=== PATIENT | female | born 1990 | race Caucasian/White ===

== ENCOUNTER 2016-11-11 10:59 | Emergency (ER) | payer SELFPAY ==
[~2016-11-11] VITALS: Ht 160 cm; Wt 86.0 kg
[~2016-11-11 10:59] MED LIST: VENL75TA4 PO
[2016-11-11 11:09] VITALS: TEMP 36.6; Ht 160 cm; Wt 86.0 kg
[2016-11-11 12:03] LABS: HEMATOCRIT 38.9 % (37-47); MEAN CELL VOLUME 90.3 fL (80-100); MEAN CORPUSCULAR HGB CONC 35.5 g/dl (32-36); MEAN PLATELET VOLUME 10.4 fL (7.4-10.4); PLATELET COUNT 252 K/uL (130-400); RED BLOOD COUNT 4.31 M/uL (4.2-5.4); WHITE BLOOD COUNT 9.83 K/uL (4.8-10.8)
[2016-11-11] MEDS ORDERED: SODIUM CHLORIDE 0.9% 1000ML 1,000 ML IV STA (12:07)
[2016-11-11 12:18] LABS: URINE APPEARANCE CLEAR (CLEAR); URINE BILIRUBIN NEG (NEG); URINE COLOR YELLOW; URINE NITRITE NEG (NEG); URINE SPECIFIC GRAVITY 1.005 (1.000-1.030); UROBILINOGEN NEG (NEG); ZZUR CULT IF INDIC CLEAN CATCH NO
[2016-11-11 12:27] LABS: MANUAL MICROSCOPIC REQUIRED? NO; REVIEW REQ? NO
[2016-11-11 12:29] LABS: BASO % 0.4 %; BASO ABS # 0.04 K/uL (0-0.2); COMPLETE YES; IG% 0.2 %; LYMPH % 31.4 %; LYMPH ABS # 3.09 K/uL (1.2-3.4); MONO % 5.5 %; NEUT % 59.5 %
[2016-11-11 12:41] LABS: BUN/CREATININE RATIO 10.7 (10-20); CALCIUM 8.5 mg/dl (8.5-10.1); CREATININE 0.71 mg/dl (0.60-1.20); POTASSIUM 3.8 mmol/L (3.5-5.1)
[2016-11-11] MEDS ORDERED: ACETTAB PO (13:04)
--- NOTE | 2016-11-11 13:58 | DIAGNOSTIC IMAGING REPORT ---
EXAMINATION: PELVIC ULTRASOUND (transabdominal and endovaginal scanning) CLINICAL HISTORY: heavy vaginal bleeding, cramping COMPARISON STUDY: None FINDINGS: The uterus measured 6.4 x 3.9 x 3.9 cm.. There is a complex lesion involving the lower uterine segment/cervix measuring 4 x 17 x 43 mm. This may represent a large blood clot. The endometrial stripe measured 7 mm. The right ovary measured 41 x 25 x 24 mm. The left ovary measured 29 x 16 x 33 mm. There is no ultrasonographic evidence of ovarian torsion. It should be noted that ovarian torsion can be present with normal Doppler ultrasonographic findings. There is a small amount of complex free fluid present. IMPRESSION: 1. Complex lesion involving the lower uterine segment/cervix measuring 40 x 17 x 43 mm. This may resent a blood clot and clinical and imaging follow-up is recommended 2. Small amount of complex free fluid 3. No pathologic ovarian masses Electronically signed by: Uche Strange M.D. 11/11/2016 1:57 PM Dictated Date/Time: 11/11/2016 1:54 PM
--- NOTE | 2016-11-11 15:49 | EMERGENCY ROOM VISIT NOTE ---
History First contact with patient: 11:53 Chief Complaint: ED VAG BLEEDING Stated Complaint: LOST A LOT OF UTERINE BLOOD History of Present Illness The patient is a 25 year old female who presents to the Emergency Room with complaints of heavy vaginal bleeding. The patient states that she has had irregular menstrual bleeding since she stopped control in May 2015. She states that her periods are very heavy and lasted longer than usual. She also has bleeding between her periods. She was seen last year in [place] emergency Department and diagnosed with PID at that time. She was told to follow-up with an [facility], but she has not seen anyone. She does report some cramping pain in her lower abdomen which she rates a 4/10. She denies any associated urinary symptoms, nausea or vomiting. She denies any chance of . She denies any history of bleeding disorders. Review of Systems A complete 10-point Review of Systems was discussed with the patient, with pertinent positives and negatives listed in the History of Present Illness. All remaining Review of Systems questions can be considered negative unless otherwise specified. Social History Smoking Status: Current Every Day Smoker Current/Historical Medications Scheduled Pwmlcnwfkupex-Jtmnetfo-Qbrojeb (Pamprin Multi-Symptom), 2 TABS PO DAILY Allergies Uncoded Allergies: AMMIRIX (Allergy, Severe, throat swelling, edema to feet, 07/11/12) Physical Exam Vital Signs Date Time Temp Pulse Resp B/P Pulse Ox O2 Delivery O2 Flow Rate FiO2 11/11/16 16:03 76 20 132/80 96 Room Air 11/11/16 14:08 78 18 107/77 100 Room Air 11/11/16 12:22 78 18 115/78 98 Room Air 11/11/16 11:09 36.6 82 17 132/79 93 Room Air Physical Exam VITALS: Vitals are noted on the nurse's note and reviewed by myself. Vital signs stable. GENERAL: This is a 25-year-old female, in no acute distress, nondiaphoretic, well-developed well-nourished. SKIN: Capillary reflex less than 2 seconds. HEART: Regular rate and rhythm without murmurs gallops or rubs. LUNGS: Clear to auscultation bilaterally without wheezes, rales or rhonchi. ABDOMEN: Positive bowel sounds x 4. Soft, minimal tenderness of the lower abdomen. No guarding or rebound tenderness. PELVIC: Small amount of blood within the vaginal vault. No blood clots or tissue noted. No abnormal discharge or cervicitis. NEURO: Patient was alert and oriented to person place and time. Medical Decision & Procedures ER Provider Diagnostic Interpretation: EXAMINATION: PELVIC ULTRASOUND (transabdominal and endovaginal scanning) CLINICAL HISTORY: heavy vaginal bleeding, cramping COMPARISON STUDY: None FINDINGS: The uterus measured 6.4 x 3.9 x 3.9 cm.. There is a complex lesion involving the lower uterine segment/cervix measuring 4 x 17 x 43 mm. This may represent a large blood clot. The endometrial stripe measured 7 mm. The right ovary measured 41 x 25 x 24 mm. The left ovary measured 29 x 16 x 33 mm. There is no ultrasonographic evidence of ovarian torsion. It should be noted that ovarian torsion can be present with normal Doppler ultrasonographic findings. There is a small amount of complex free fluid present. IMPRESSION: 1. Complex lesion involving the lower uterine segment/cervix measuring 40 x 17 x 43 mm. This may resent a blood clot and clinical and imaging follow-up is recommended 2. Small amount of complex free fluid 3. No pathologic ovarian masses Laboratory Results 11/11/16 11:45 Red Blood Count 4.31, Mean Corpuscular Volume 90.3, Mean Corpuscular Hemoglobin 32.0, Mean Corpuscular Hemoglobin Concent 35.5, Mean Platelet Volume 10.4, Neutrophils (%) (Auto) 59.5, Lymphocytes (%) (Auto) 31.4, Monocytes (%) (Auto) 5.5, Eosinophils (%) (Auto) 3.0, Basophils (%) (Auto) 0.4, Neutrophils # (Auto) 5.85, Lymphocytes # (Auto) 3.09, Monocytes # (Auto) 0.54, Eosinophils # (Auto) 0.29, Basophils # (Auto) 0.04 11/11/16 11:45 Test 11/11/16 11:40 11/11/16 11:45 Urine Color YELLOW Urine Appearance CLEAR (CLEAR) Urine pH 7.0 (4.5-7.5) Urine Specific [place] 1.005 (1.000-1.030) Urine Protein NEG (NEG) Urine Glucose (UA) NEG (NEG) Urine Ketones NEG (NEG) Urine Occult Blood 3+ (NEG) Urine Nitrite NEG (NEG) Urine Bilirubin NEG (NEG) Urine Urobilinogen NEG (NEG) Urine Leukocyte Esterase NEG (NEG) Urine WBC (Auto) 1-5 /hpf (0-5) Urine RBC (Auto) >30 /hpf (0-4) Urine Hyaline Casts (Auto) 0 /lpf (0-5) Urine Epithelial Cells (Auto) 10-20 /lpf (0-5) Urine Bacteria (Auto) NEG (NEG) Urine Test NEG (NEG) White Blood Count 9.83 K/uL (4.8-10.8) Red Blood Count 4.31 M/uL (4.2-5.4) Hemoglobin 13.8 g/dL (12.0-16.0) Hematocrit 38.9 % (37-47) Mean Corpuscular Volume 90.3 fL (80-100) Mean Corpuscular Hemoglobin 32.0 pg (25-34) Mean Corpuscular Hemoglobin Concent 35.5 g/dl (32-36) Platelet Count 252 K/uL (130-400) Mean Platelet Volume 10.4 fL (7.4-10.4) Neutrophils (%) (Auto) 59.5 % Lymphocytes (%) (Auto) 31.4 % Monocytes (%) (Auto) 5.5 % Eosinophils (%) (Auto) 3.0 % Basophils (%) (Auto) 0.4 % Neutrophils # (Auto) 5.85 K/uL (1.4-6.5) Lymphocytes # (Auto) 3.09 K/uL (1.2-3.4) Monocytes # (Auto) 0.54 K/uL (0.11-0.59) Eosinophils # (Auto) 0.29 K/uL (0-0.5) Basophils # (Auto) 0.04 K/uL (0-0.2) RDW Standard Deviation 42.9 fL (36.4-46.3) RDW Coefficient of Variation 13.1 % (11.5-14.5) Immature Granulocyte % (Auto) 0.2 % Immature Granulocyte # (Auto) 0.02 K/uL (0.00-0.02) Anion Gap 10.0 mmol/L (3-11) Est Creatinine Clear Calc Drug Dose 124.8 ml/min Estimated GFR () 136.2 Estimated GFR (Non- 117.6 BUN/Creatinine Ratio 10.7 (10-20) Calcium Level 8.5 mg/dl (8.5-10.1) Total Bilirubin 0.2 mg/dl (0.2-1) Aspartate Amino Transf (AST/SGOT) 20 U/L (15-37) Alanine Aminotransferase (ALT/SGPT) 16 U/L (12-78) Alkaline Phosphatase 84 U/L (45-117) Total Protein 7.6 gm/dl (6.4-8.2) Albumin 3.8 gm/dl (3.4-5.0) Globulin 3.8 gm/dl (2.5-4.0) Albumin/Globulin Ratio 1.0 (0.9-2) Thyroid Stimulating Hormone (TSH) 2.360 uIu/ml (0.300-4.500) Chemistry Specimen Hemolysis Medications Administered Medications (Trade) Dose Ordered Sig/Tushar Route Start Time Stop Time Status Last Admin Dose Admin Sodium Chloride (Nss 1000ml) 1,000 ml @ 999 mls/hr Q1H1M STAT IV 11/11/16 12:07 11/11/16 13:07 DC 11/11/16 12:22 999 MLS/HR Medical Decision Differential diagnosis includes lesion, bleeding disorder, PID, ectopic , spontaneous , among others. The patient was evaluated as above. Labs were drawn and IV access was obtained. Imaging studies were performed and read by radiology as above. The patient was medicated with a liter normal saline solution. The patient was reassessed multiple times during their stay in the emergency department and remained in stable condition. The patient is a 25-year-old female who presents today complaining of irregular menstrual bleeding and pelvic cramping. Labs revealed no anemia or leukocytosis. Urinalysis was not suggestive of infection. Urine was negative. Pelvic ultrasound was performed and read by radiology. There was a lesion in the lower uterus concerning for a blood clot. The patient's pelvic exam was unremarkable. TSH was within normal limits. PT and PTT were pending at the time of my evaluation due to specimen hemolysis, but I do feel that a bleeding disorder is unlikely. I spoke with Dr. Craig regarding this patient. He recommended having the patient follow up with [facility] as an outpatient. I spoke with case management, who did discuss CVIM with the patient. The patient was informed of all findings. She will return for any worsening or new/concerning symptoms. Based on the patient's presentation, lab results, and imaging studies, I feel the patient is stable for outpatient treatment. Discharge instructions were reviewed with the patient. The patient verbalized understanding of my assessment and treatment plan and was discharged home in good condition. Impression Primary Impression: Irregular menstrual bleeding Departure Information Dispostion Home / Self-Care Condition GOOD Referrals No Doctor, Assigned (PCP) Lisy Craig M.D. Patient Instructions My [facility] Additional Instructions For pain control, you can use the following aaci-jcu-zcrwkup medicines (if >12 yo): - Regular strength (325mg/tab) Tylenol (acetaminophen) 2 tabs every 4-6 hours as needed. Do not exceed 12 tablets in a 24 hour period. Avoid taking more than 4 grams (4000 mg) of Tylenol per day. This includes any other sources of acetaminophen you may take on a regular basis. - Regular strength (200 mg/tab) Advil (ibuprofen) 1-2 tabs every 4-6 hours as needed. Do not exceed a dose of 3200 mg per day. Follow-up with [facility] within the next 1-2 weeks for further evaluation of your vaginal bleeding. Return to the emergency department for worsening bleeding, worsening pain, fevers/chills or any other new/concerning symptoms.
[2016-11-11 16:03] VITALS: BP 132/80; PULSE 76; O2SAT 96
== END 2016-11-11 16:04 | disposition home or self-care (01) ==
LOC: C.EDB 11:01 → C.EDA 16:04
DX: N92.6 Irregular menstruation, unspecified (principal); F17.210 Nicotine dependence, cigarettes, uncomplicated